=== PATIENT | female | born 1980 | race Hispanic/Latino ===

== ENCOUNTER 2019-08-11 22:23 | Emergency (ER) | payer SELFPAY ==
--- NOTE | 2019-08-11 23:03 | RAD ---
EXAM: 3 views of the right hand COMPARISON: None HISTORY: Hand pain while doing pushups. FINDINGS: 3 views of the hand shows a fracture of the proximal aspect of the fourth metacarpal.. No d egenerative changes are seen. Dorsal soft tissue swelling is present. IMPRESSION: Fourth metacarpal fracture
[2019-08-11] MEDS ORDERED: Acetaminophen 500 MG TAB ONE (23:18)
== END 2019-08-11 23:47 | disposition home or self-care (01) ==
LOC: ERS 22:23
DX: S62.304A Unspecified fracture of fourth metacarpal bone, right hand, initial encounter for closed fracture (principal); J45.909 Unspecified asthma, uncomplicated; F41.9 Anxiety disorder, unspecified; F31.9 Bipolar disorder, unspecified; F41.0 Panic disorder [episodic paroxysmal anxiety]; F17.210 Nicotine dependence, cigarettes, uncomplicated; Z79.899 Other long term (current) drug therapy; X50.9XXA Other and unspecified overexertion or strenuous movements or postures, initial encounter; Y93.B2 Activity, push-ups, pull-ups, sit-ups
CPT/HCPCS: 29125